=== PATIENT | female | born 1990 | race Caucasian/White ===

== ENCOUNTER 2019-05-13 18:18 | Emergency (ER) | payer OTHER ==
[~2019-05-13] VITALS: Ht 165.1 cm; Wt 79.4 kg
[2019-05-13 18:19] VITALS: BP 116/60
--- NOTE | 2019-05-13 18:24 | NUR ---
29 Y/O FEMALE BIBA ALS S/P HAVING 3 SEIZURES AT HOME THIS MORNING AROUND 0900 LASTING APPROX 30-45 SEC. PER EMS PT HAD SEIZURE IN ROUTE LASTING ABOUT 30 SEC. PT WAS GIVEN 2.5 OF VERSED. PT IN POSTICTAL PHASE AT THIS TIME. PT AROUSABLE TO NAME, APPEARS CONFUSED. RR EVEN AND UNLABORED. PLACED ON MONITOR. FAMILY AT BEDSIDE. SEIZURE PRECAUTIONS IN PLACE. VSS. WILL CONTINUE TO MONITOR MEDHX: SEIZURES ALLERGIES: NKA
[2019-05-13 19:10] LABS: BASOPHILS # (AUTO) 0.1 K/uL (0.00-0.22); BASOPHILS % (AUTO) 1.4 % (0.0-2.0); EOSINOPHILS # (AUTO) 0.2 K/uL (0-0.4); EOSINOPHILS % (AUTO) 2.4 % (0.0-4.0); HEMATOCRIT 44.7 % (36-48); HEMOGLOBIN 14.8 g/dL (12.0-16.0); LYMPHOCYTES % (AUTO) 45.2 % (20.5-51.1); MEAN CORPUSCULAR HEMOGLOBIN 31 pg (27-31); MEAN CORPUSCULAR HGB CONC 33 g/dL (33-37); MONOCYTES # (AUTO) 0.5 K/uL (0.8-1.0); MONOCYTES % (AUTO) 8.3 % (1.7-9.3); NEUTROPHILS # (AUTO) 2.8 K/uL (1.8-7.7); NEUTROPHILS % (AUTO) 42.7 % (42.2-75.2); PLATELET COUNT (AUTO) 314 K/uL (140-450); RED BLOOD CELL COUNT(AUTO) 4.75 MIL/uL (4.20-5.40); RED CELL DISTRIBUTION WIDTH 13.5 % (11.6-13.7); WHITE BLOOD COUNT (AUTO) 6.6 K/uL (4.8-10.8)
--- NOTE | 2019-05-13 19:28 | NUR ---
CALLED TO BED 10 BY DOUBLE CUT SAWYER FOR PT HAVING SEIZURE. WITNESSED TONIC CLONIC SEIZURE X APPROX 45 SECONDS. PRIMARY RN CALLED TO BEDSIDE. PT TURNED TO SIDE. HEAD STABILIZED FOR SAFETY. TACHYCARDIC AT 123 BPM. SPO2 REMAINED WNL 97-98% ON RA. PT HAD APPROX 30 SECONDS OF REST AND THEN A SECONDARY SEIZURE FOR APPROX 10-15 SECONDS. AT BEDSIDE. SEIZURE PRECAUTIONS IMPLEMENTED. PT SAFETY MAINTAINED.
[2019-05-13] MEDS ORDERED: NACL 0.9% 1,000 ML IV ONE (19:30)
[2019-05-13 19:32] LABS: ALBUMIN 3.8 g/dL (3.4-5.0); ANION GAP 10.1 (8-16); ASPARTATE AMINOTRANSFERASE 18 U/L (15-37); CARBON DIOXIDE 26.6 mmol/L (21-32); CHLORIDE 106 mmol/L (98-107); CREATININE 0.7 mg/dL (0.6-1.3); GFR ARICAN-AMERICAN 127 mL/min (>90); GLUCOSE 98 mg/dL (74-106); POTASSIUM 3.7 mmol/L (3.5-5.1); SODIUM SERUM 139 mmol/L (136-145); THYROID STIMULATING HORMONE 2.18 uIU/mL (0.34-3.74); TOTAL BILIRUBIN 0.2 mg/dL (0.0-1.0); UREA NITROGEN, BLOOD 15 mg/dL (7-18)
[2019-05-13 20:46] LABS: APPEARANCE,URINE CLEAR (CLEAR); BILIRUBIN,URINE NEGATIVE (NEGATIVE); BLOOD, URINE NEGATIVE (NEGATIVE); COLOR,URINE YELLOW (YELLOW); LEUKOCYTE ESTERASE ,URINE NEGATIVE (NEGATIVE); NITRITE, URINE NEGATIVE (NEGATIVE); UGLUCOSE NEGATIVE (NEGATIVE)
[2019-05-13 20:57] LABS: BARBITURATE, URINE NEG. ng/ml (NEG <=200); BENZODIAZEPINE, URINE POS. ng/mL (NEG <=200); CANNABINOID, URINE NEG. ng/mL (NEG <=50); COCAINE, URINE NEG. ng/mL (NEG <=300); OPIATE, URINE NEG. ng/mL (NEG <=2000); PHENCYCLIDINE SCREEN,URINE NEG. ng/mL (NEG <=25)
[2019-05-13 22:00] VITALS: BP 109/63
--- NOTE | 2019-05-13 22:00 | NUR ---
Patient discharged with v/s stable. Written and verbal after care instructions given and explained. Patient verbalized understanding. Wheel Chair Assisted with to car. All questions addressed prior to discharge. Advised to follow up with PMD.
== END 2019-05-13 22:00 | disposition home or self-care (01) ==
LOC: MED 18:18
DX: G40.909 Epilepsy, unspecified, not intractable, without status epilepticus (principal)
CPT/HCPCS: 36415; 70450; 80053; 80305; 81003; 81025; 84443; 84702; 85025; 99284; G0482; J7030